=== PATIENT | female | born 1990 | race Caucasian/White ===

== ENCOUNTER 2018-05-19 02:04 | Inpatient (IN) | payer OTHER ==
[~2018-05-19] VITALS: Ht 160 cm; Wt 58.0 kg
[~2018-05-19 02:04] MED LIST: HYDR-3240 PO; IBUP-1222 PO; LEVO500T47 PO; MAGN400T26 PO; NONE PER PT; ONDA4TAB10 PO; OXYC-302 PO; PANT40TA3 PO; PNV1TABL85 PO; POLY17PO5 PO; PREN1TAB60 PO
[2018-05-19 02:44] LABS: AMPHETAMINE SCREEN, URINE Negative (Negative); BARBITURATE SCREEN, URINE Negative (Negative); BENZODIAZEPINE SCREEN, URINE Negative (Negative); CANNABINOID SCREEN, URINE Negative (Negative); COCAINE SCREEN, URINE Negative (Negative); METHADONE SCREEN, URINE Negative (Negative); OPIATE SCREEN, URINE Positive (Negative)
[2018-05-19 02:50] LABS: BASOPHILS # (AUTO) 0.11 x10^3/uL (0-0.1); BASOPHILS % (AUTO) 1 % (0-1); EOSINOPHILS # (AUTO) 0.05 x10^3/uL (0-0.4); EOSINOPHILS % (AUTO) 0 % (1-7); LYMPHOCYTES # (AUTO) 3.24 x10^3/uL (1-3.4); LYMPHOCYTES % (AUTO) 21 % (22-44); MD NO; MEAN CORPUSCULAR HEMOGLOBIN 31.8 pg (27.0-34.8); MEAN CORPUSCULAR HGB CONC 33.9 g/dL (32.4-35.8); MEAN CORPUSCULAR VOLUME 93.9 fL (80-100); MEAN PLATELET VOLUME 8.5 fL (7.4-10.4); MONOCYTES # (AUTO) 0.62 x10^3/uL (0.2-0.8); MONOCYTES % (AUTO) 4 % (2-9); NEUTROPHILS # (AUTO) 11.78 x10^3/uL (1.8-6.8); NEUTROPHILS % (AUTO) 75 % (42-75); PLATELET COUNT 289 x10^3/uL (130-400); RED BLOOD COUNT 4.01 x10^6/uL (3.82-5.3); RED CELL DISTRIBUTION WIDTH 12.9 % (9.6-15.2)
[2018-05-19] MEDS ORDERED: METOCLOPRAMIDE 5 MG/ML, 2ML ONE (03:01)
[2018-05-19] MEDS ORDERED: NEWBORN KIT ONE (03:01)
[2018-05-19] MEDS ORDERED: SODIUM CITRATE/CITRIC ACID 30 ML UDC ONE (03:01)
[2018-05-19] MEDS ORDERED: OXYTOCIN 30U/ 0.9% NaCL 500ML 500 ML IV SCH (03:14)
[2018-05-19] MEDS ORDERED: LACTATED RINGERS 1,000 ML IV SCH ×2 (03:14→03:30)
[2018-05-19] MEDS ORDERED: LACTATED RINGERS 1,000 ML IVBOLUS ONE (03:30)
[2018-05-19] MEDS ORDERED: SODIUM CITRATE/CITRIC ACID 30 ML UDC PO ONE (03:30)
[2018-05-19] MEDS ORDERED: METOCLOPRAMIDE 5 MG/ML, 2ML IV ONE (03:30)
[2018-05-19] MEDS ORDERED: OXYTOCIN 30U/ 0.9% NaCL 500ML 500 ML ONE (03:55)
[2018-05-19] MEDS ORDERED: CLINDAMYCIN PMX 900MG/50ML 50 ML ONE (04:23)
[2018-05-19] MEDS ORDERED: morphine SULFATE/PF 1 MG/ML, 10ML ONE (04:23)
[2018-05-19] MEDS ORDERED: ONDANSETRON 2MG/ML, 2ML ONE (04:34)
[2018-05-19] MEDS ORDERED: OXYTOCIN 10 UNITS/ML, 1ML ONE (04:34)
[2018-05-19] MEDS ORDERED: DEXAMETHASONE 4 MG/ML, 1ML ONE (04:34)
[2018-05-19] MEDS ORDERED: KETOROLAC 30 MG/1 ML ONE (04:34)
[2018-05-19] MEDS ORDERED: PHENYLEPHRINE 10 MG/ML ONE (04:34)
[2018-05-19] MEDS ORDERED: SODIUM CHLORIDE 0.9% PF 10ML ONE (04:43)
[2018-05-19] MEDS ORDERED: EPHEDRINE 50 MG/ML, 1ML ONE (04:43)
[2018-05-19] MEDS: OXYTOCIN 30U/ 0.9% NaCL 500ML 500 ML IV SCH ×2 (05:54→15:54)
[2018-05-19] MEDS ORDERED: IBUPROFEN 600 MG TABLET PO PRN (06:00)
[2018-05-19] MEDS ORDERED: ONDANSETRON 2MG/ML, 2ML IV PRN (06:00)
[2018-05-19] MEDS ORDERED: CARBOPROST TROMETHAMINE 250 MCG/ML, 1ML IM PRN (06:00)
[2018-05-19] MEDS ORDERED: HYDROcodone/APAP 5/325 TABLET PO PRN (06:00)
[2018-05-19] MEDS ORDERED: METHYLERGONOVINE 0.2 MG/ML IM PRN (06:00)
[2018-05-19] MEDS ORDERED: METOCLOPRAMIDE 5 MG/ML, 2ML IV PRN (06:00)
[2018-05-19] MEDS ORDERED: BISACODYL 10 MG SUPP PR PRN (06:00)
[2018-05-19 07:00] VITALS: BP 96/53
[2018-05-19] MEDS: HYDROcodone/APAP 5/325 TABLET PO PRN ×3 (08:18→20:08)
[2018-05-19] MEDS: PRENATAL VIT/IRON/FA 1 EACH TABLET PO SCH (09:00)
[2018-05-19] MEDS ORDERED: ONDANSETRON 2MG/ML, 2ML IVPush PRN (11:00)
[2018-05-19] MEDS ORDERED: NALOXONE 0.4 MG/ML, 1ML IV PRN (11:00)
[2018-05-19] MEDS ORDERED: EPHEDRINE 50 MG/ML, 1ML IVPush PRN (11:00)
[2018-05-19] MEDS ORDERED: DIPHENHYDRAMINE 50 MG/ML, 1ML IV PRN (11:00)
[2018-05-19] MEDS ORDERED: NO SEDATIVES, TRANQUILIZERS OR ANTIEMETICS XX SCH (11:00)
[2018-05-19] MEDS ORDERED: MORPHINE SULFATE 4 MG/ML, 1ML IV PRN (11:00)
[2018-05-19 11:15] VITALS: BP 98/53
[2018-05-19] MEDS: KETOROLAC 30 MG/1 ML IVPush SCH ×2 (11:28→20:15)
[2018-05-19 12:48] LABS: BASOPHILS # (AUTO) 0.08 x10^3/uL (0-0.1); BASOPHILS % (AUTO) 1 % (0-1); EOSINOPHILS % (AUTO) 0 % (1-7); LYMPHOCYTES # (AUTO) 1.35 x10^3/uL (1-3.4); LYMPHOCYTES % (AUTO) 9 % (22-44); MD NO; MEAN CORPUSCULAR HEMOGLOBIN 32.2 pg (27.0-34.8); MEAN CORPUSCULAR HGB CONC 33.9 g/dL (32.4-35.8); MEAN CORPUSCULAR VOLUME 94.8 fL (80-100); MEAN PLATELET VOLUME 8.2 fL (7.4-10.4); MONOCYTES # (AUTO) 0.49 x10^3/uL (0.2-0.8); MONOCYTES % (AUTO) 3 % (2-9); NEUTROPHILS # (AUTO) 12.41 x10^3/uL (1.8-6.8); NEUTROPHILS % (AUTO) 87 % (42-75); PLATELET COUNT 241 x10^3/uL (130-400); RED BLOOD COUNT 3.51 x10^6/uL (3.82-5.3); RED CELL DISTRIBUTION WIDTH 13.7 % (9.6-15.2)
[2018-05-19 16:00] VITALS: BP 93/61
[2018-05-19 20:00] VITALS: BP 96/63
[2018-05-19] MEDS: DOCUSATE 100 MG CAPSULE PO PRN (20:08)
[2018-05-20 00:05] VITALS: BP 91/52
[2018-05-20] MEDS: OXYTOCIN 30U/ 0.9% NaCL 500ML 500 ML IV SCH ×3 (01:54→21:54)
[2018-05-20] MEDS: KETOROLAC 30 MG/1 ML IVPush SCH (02:05)
[2018-05-20] MEDS: HYDROcodone/APAP 5/325 TABLET PO PRN ×3 (02:05→21:31)
[2018-05-20 04:00] VITALS: BP 94/57
[2018-05-20 09:06] VITALS: BP 85/48
[2018-05-20] MEDS: PRENATAL VIT/IRON/FA 1 EACH TABLET PO SCH (11:43)
[2018-05-20] MEDS: IBUPROFEN 600 MG TABLET PO PRN ×2 (11:43→21:29)
[2018-05-20] MEDS: DOCUSATE 100 MG CAPSULE PO PRN ×2 (11:43→21:29)
[2018-05-20 19:15] VITALS: BP 93/63
[2018-05-21] MEDS: HYDROcodone/APAP 5/325 TABLET PO PRN ×3 (01:46→12:41)
[2018-05-21] MEDS: IBUPROFEN 600 MG TABLET PO PRN ×2 (05:48→12:41)
[2018-05-21] MEDS: OXYTOCIN 30U/ 0.9% NaCL 500ML 500 ML IV SCH (07:54)
[2018-05-21 08:00] VITALS: BP 111/73
[2018-05-21] MEDS: PRENATAL VIT/IRON/FA 1 EACH TABLET PO SCH (08:07)
[2018-05-21] MEDS: DOCUSATE 100 MG CAPSULE PO PRN (08:07)
[2018-05-21] MEDS ORDERED: HYDR-3240 PO (11:21)
[2018-05-21] MEDS ORDERED: IBUP-1222 PO (11:22)
== END 2018-05-21 13:20 | disposition home or self-care (01) | DRG 788 ==
LOC: LDOP 02:04 → LDIP 03:11 → 2NW 06:52
PROVIDERS: ADMIT Obstetrics & Gynecology; ATTEND Obstetrics & Gynecology
PROC: 10D00Z1 Extraction of Products of Conception, Low, Open Approach (ICD-10-PCS; principal; 2018-05-19)
DX: O34.211 Maternal care for low transverse scar from previous cesarean delivery (principal); O69.81X0 Labor and delivery complicated by cord around neck, without compression, not applicable or unspecified; Z88.0 Allergy status to penicillin; Z88.8 Allergy status to other drugs, medicaments and biological substances; Z37.0 Single live birth; Z3A.38 38 weeks gestation of pregnancy
CPT/HCPCS: 36415; 76815; 80307; 84112; 85025; 86592; 86762; 86803; 86850; 86900; 87340; 87806; 89060; G0378; J1100; J1885; J2274; J2405; G0475; J2370; J2590; J2765; J7120; Q0114

== ENCOUNTER 2018-06-04 19:08 | Emergency (ER) | payer SELFPAY ==
[~2018-06-04] VITALS: Ht 160 cm; Wt 56.3 kg
[2018-06-04] MEDS ORDERED: ONDANSETRON 2MG/ML, 2ML IVPush ONE (19:30)
[2018-06-04] MEDS ORDERED: MORPHINE SULFATE 4 MG/ML, 1ML IVPush PRN (19:30)
[2018-06-04] MEDS ORDERED: SODIUM CHLORIDE 0.9% 1,000ML IVBOLUS ONE (19:30)
[2018-06-04] MEDS ORDERED: SODIUM CHLORIDE FLUSH 10ML SYR IVF ONE (19:30)
[2018-06-04 19:37] LABS: BASOPHILS # (AUTO) 0.07 x10^3/uL (0-0.1); BASOPHILS % (AUTO) 0 % (0-1); EOSINOPHILS % (AUTO) 1 % (1-7); LYMPHOCYTES # (AUTO) 1.73 x10^3/uL (1-3.4); LYMPHOCYTES % (AUTO) 10 % (22-44); MD NO; MEAN CORPUSCULAR HEMOGLOBIN 31.9 pg (27.0-34.8); MEAN CORPUSCULAR HGB CONC 33.4 g/dL (32.4-35.8); MEAN CORPUSCULAR VOLUME 95.5 fL (80-100); MEAN PLATELET VOLUME 8.5 fL (7.4-10.4); MONOCYTES # (AUTO) 1.15 x10^3/uL (0.2-0.8); MONOCYTES % (AUTO) 6 % (2-9); NEUTROPHILS # (AUTO) 14.98 x10^3/uL (1.8-6.8); NEUTROPHILS % (AUTO) 83 % (42-75); PLATELET COUNT 346 x10^3/uL (130-400); RED BLOOD COUNT 4.58 x10^6/uL (3.82-5.3); RED CELL DISTRIBUTION WIDTH 13.2 % (9.6-15.2)
[2018-06-04 19:43] LABS: ALANINE AMINOTRANSFERASE 15 U/L (12-78); ALBUMIN 3.2 g/dL (3.4-5.0); ANION GAP 10 mmol/L (5-15); CALCIUM 8.8 mg/dL (8.5-10.1); CHLORIDE 106 mmol/L (98-107)
[2018-06-04 19:45] LABS: ALKALINE PHOSPHATASE 112 U/L (45-117); BILIRUBIN,TOTAL 0.7 mg/dL (0.2-1.0)
[2018-06-04 20:14] LABS: CULTURE INDICATED? YES; MICROSCOPIC INDICATED
[2018-06-04] MEDS ORDERED: ONDANSETRON 2MG/ML, 2ML ONE (20:45)
[2018-06-04] MEDS ORDERED: CEFTRIAXONE PMX 1GM/50ML 50 ML ONE (20:45)
[2018-06-04] MEDS ORDERED: MORPHINE SULFATE 4 MG/ML, 1ML ONE (20:46)
[2018-06-04 20:51] VITALS: BP 94/68
[2018-06-04] MEDS ORDERED: CEFTRIAXONE PMX 1GM/50ML 50 ML IV ONE (21:00)
== END 2018-06-04 21:38 | disposition home or self-care (01) ==
LOC: ED 20:19
DX: N10 Acute pyelonephritis (principal); N39.0 Urinary tract infection, site not specified; Z88.0 Allergy status to penicillin; Z88.1 Allergy status to other antibiotic agents
CPT/HCPCS: 36415; 76770; 76856; 80053; 81001; 83605; 84145; 85025; 87040; 87077; 87086; 87186; 96365; 96375; 99285; J0696; J2405; J7030

== ENCOUNTER 2020-01-07 15:55 | Emergency (ER) | payer OTHER ==
[~2020-01-07] VITALS: Ht 157.5 cm; Wt 62.5 kg
[2020-01-07 16:03] VITALS: BP 110/57
[2020-01-07] MEDS ORDERED: SODIUM CHLORIDE 0.9% 1,000ML IVBOLUS ONE (16:30)
[2020-01-07] MEDS ORDERED: SODIUM CHLORIDE FLUSH 10ML SYR IVF ONE (16:30)
[2020-01-07] MEDS ORDERED: KETOROLAC 30 MG/1 ML IVPush ONE (16:30)
[2020-01-07] MEDS ORDERED: ONDANSETRON 2MG/ML, 2ML IVPush ONE ×2 (16:30→19:30)
[2020-01-07 16:40] LABS: BASOPHILS # (AUTO) 0.02 x10^3/uL (0-0.1); BASOPHILS % (AUTO) 0 % (0-1); EOSINOPHILS # (AUTO) 0.11 x10^3/uL (0-0.4); EOSINOPHILS % (AUTO) 1 % (1-7); LYMPHOCYTES # (AUTO) 1.75 x10^3/uL (1-3.4); LYMPHOCYTES % (AUTO) 11 % (22-44); MD NO; MEAN CORPUSCULAR HEMOGLOBIN 32.8 pg (27.0-34.8); MEAN CORPUSCULAR HGB CONC 33.8 g/dL (32.4-35.8); MEAN CORPUSCULAR VOLUME 96.9 fL (80-100); MEAN PLATELET VOLUME 7.5 fL (7.4-10.4); MONOCYTES # (AUTO) 1.05 x10^3/uL (0.2-0.8); MONOCYTES % (AUTO) 7 % (2-9); NEUTROPHILS # (AUTO) 12.96 x10^3/uL (1.8-6.8); NEUTROPHILS % (AUTO) 82 % (42-75); PLATELET COUNT 442 x10^3/uL (130-400); RED BLOOD COUNT 4.08 x10^6/uL (3.82-5.3); RED CELL DISTRIBUTION WIDTH 12.9 % (9.6-15.2)
[2020-01-07 16:51] LABS: ALBUMIN 3.4 g/dL (3.4-5.0); ANION GAP 6 mmol/L (5-15); CALCIUM 8.7 mg/dL (8.5-10.1); CHLORIDE 109 mmol/L (98-107)
[2020-01-07 16:56] LABS: ALANINE AMINOTRANSFERASE 18 U/L (12-78); ALKALINE PHOSPHATASE 81 U/L (45-117); BILIRUBIN,TOTAL 0.3 mg/dL (0.2-1.0); CREATININE 1.01 mg/dL (0.55-1.02); TOTAL PROTEIN 7.5 g/dL (6.4-8.2)
[2020-01-07] MEDS ORDERED: KETOROLAC 30 MG/1 ML ONE (17:13)
[2020-01-07] MEDS ORDERED: ONDANSETRON 2MG/ML, 2ML ONE ×3 (17:14→19:34)
--- NOTE | 2020-01-07 17:25 | NUR ---
PT AWARE OF NEED FOR URINE SAMPLE. DENIES ABILITY TO URINATE AT THIS TIME, FLUID BOLUS HANGING. SAMPLE EXPLAINED, CUP LEFT AT BEDSIDE, PT VERBALIZES UNDERSTANDING AND DENIES ANY FURTHER NEEDS OR CONCERNS AT THIS TIME. CALL LIGHT IN REACH.
[2020-01-07 18:05] LABS: MICROSCOPIC INDICATED
--- NOTE | 2020-01-07 18:32 | NUR ---
PT RETURNED FROM CT AT THIS TIME.
[2020-01-07] MEDS ORDERED: CEFTRIAXONE PMX 1GM/50ML 50 ML ONE ×2 (19:28→19:34)
[2020-01-07] MEDS ORDERED: MORPHINE SULFATE 4 MG/ML, 1ML ONE ×2 (19:29→19:34)
[2020-01-07] MEDS ORDERED: CEFTRIAXONE PMX 1GM/50ML 50 ML IV ONE (19:30)
[2020-01-07] MEDS ORDERED: MORPHINE SULFATE 4 MG/ML, 1ML IVPush PRN (19:30)
--- NOTE | 2020-01-07 19:37 | NUR ---
Pt medicated per emar and agreeabl to morphine dose for pain control.
== END 2020-01-07 20:39 | disposition home or self-care (01) ==
LOC: ED 16:36
DX: N30.01 Acute cystitis with hematuria (principal); N12 Tubulo-interstitial nephritis, not specified as acute or chronic; F17.200 Nicotine dependence, unspecified, uncomplicated
CPT/HCPCS: 36415; 74176; 80053; 81001; 83605; 84703; 85025; 87040; 87077; 87086; 87186; 96361; 96365; 96375; 96376; 99284; J0696; J1885; J2270; J2405; J7030

== ENCOUNTER 2021-03-14 13:32 | Emergency (ER) | payer SELFPAY ==
[~2021-03-14] VITALS: Ht 160 cm; Wt 57.2 kg
[~2021-03-14 13:32] MED LIST changes: +HYDR-2214 PO; -HYDR-3240 PO; -OXYC-302 PO; +OXYC1TAB14 PO
[2021-03-14] MEDS ORDERED: SODIUM CHLORIDE 0.9% 1,000 ML IV ONE (14:30)
[2021-03-14] MEDS ORDERED: SODIUM CHLORIDE 0.9% 1,000ML IVBOLUS ONE ×2 (14:30→17:30)
[2021-03-14] MEDS ORDERED: SODIUM CHLORIDE FLUSH 10ML SYR IVF ONE (14:30)
[2021-03-14] MEDS ORDERED: ONDANSETRON 2MG/ML, 2ML IVPush ONE (14:30)
[2021-03-14] MEDS ORDERED: ONDANSETRON 2MG/ML, 2ML ONE (14:40)
--- NOTE | 2021-03-14 14:56 | NUR ---
PT LAYING ON GURNEY AWAKE & CALM, MEDICATED PER EMAR, RESPONDS APPROP TO STAFF, COMFORT MEASURES PROVIDED, AT BS, CALL LIGHT WITHIN REACH.
[2021-03-14 15:02] LABS: BASOPHILS % (AUTO) 0 % (0-1); EOSINOPHILS % (AUTO) 1 % (1-7); LYMPHOCYTES % (AUTO) 5 % (22-44); MEAN CORPUSCULAR HEMOGLOBIN 33.2 pg (27.0-34.8); MEAN CORPUSCULAR HGB CONC 34.7 g/dL (32.4-35.8); MEAN PLATELET VOLUME 8.6 fL (7.4-10.4); MONOCYTES % (AUTO) 0 % (2-9); NEUTROPHILS % (AUTO) 94 % (42-75); PLATELET COUNT 190 x10^3/uL (130-400); RED BLOOD COUNT 3.63 x10^6/uL (3.82-5.3); RED CELL DISTRIBUTION WIDTH 12.2 % (9.6-15.2)
[2021-03-14 15:03] LABS: ALANINE AMINOTRANSFERASE 17 U/L (12-78); ALBUMIN 3.3 g/dL (3.4-5.0); ANION GAP 6 mmol/L (5-15); CALCIUM 7.9 mg/dL (8.5-10.1); CHLORIDE 108 mmol/L (98-107); CREATININE 0.92 mg/dL (0.55-1.02)
[2021-03-14 15:20] LABS: ALKALINE PHOSPHATASE 64 U/L (45-117); BILIRUBIN,TOTAL 1.6 mg/dL (0.2-1.0); TOTAL PROTEIN 6.5 g/dL (6.4-8.2)
[2021-03-14] MEDS ORDERED: POTASSIUM CHLORIDE 20 MEQ TAB.ER.PRT PO ONE (15:30)
[2021-03-14 15:33] LABS: MICROSCOPIC INDICATED
--- NOTE | 2021-03-14 16:08 | NUR ---
ING ON HELEN WITH EYES CLOSED, MEDICATED PER SERVANDO, RESPONDS APPROP TO STAFF, COMMFORT MEASURES PROVIDED, AT BS, CALL LIGHT WITHIN REACH. Addendum: 03/14/21 at 1610 by WILLIE PT RESTING ON HELEN WITH EYES CLOSED, RESPONDS APPROP TO STAFF, NO NEEDS AT THIS TIME, AT BS, CALL LIGHT WITHIN REACH. PT TO US
[2021-03-14] MEDS ORDERED: POTASSIUM CHLORIDE 20 MEQ TAB.ER.PRT ONE (17:02)
--- NOTE | 2021-03-14 17:04 | NUR ---
PT LAYING ON GURNEY WITH EYES CLOSED, RESPONDS APPROP TO STAFF, ERP AWARE OF CURRENT VS- PT MEDICATED PER EMAR, COMFORT MEASURES PROVIDED, AT BS, CALL LIGHT WITHIN REACH.
[2021-03-14] MEDS ORDERED: CEFTRIAXONE 1,000 MG in DEXTROSE 5% 50 ML IVPB ONE (17:30)
--- NOTE | 2021-03-14 18:04 | NUR ---
PT LAYING ON GURNEY AWAKE & CALM, RESPONDS APPROP TO STAFF, NO NEEDS AT THIS TIME, AT BS, CALL LIGHT WITHIN REACH.
[2021-03-14] MEDS ORDERED: D5%-0.9% NACL 1,000 ML IV ONE (18:30)
--- NOTE | 2021-03-14 19:04 | NUR ---
PT UPRIGHT ON GURNEY AWAKE & CALM, RESPONDS APPROP TO STAFF, ERP AT BS UPDATING PT ON POC, NO NEEDS AT THIS TIME, AT BS, CALL LIGHT WITHIN REACH.
[2021-03-14 19:25] VITALS: BP 88/56
--- NOTE | 2021-03-14 19:25 | NUR ---
PT AMBULATED TO WO DIZZINESS/LIGHT-HEADEDNESS OR WEAKNESS- ERP NOTIFIED, IVF INFUSED, PT BACK TO [facility].
--- NOTE | 2021-03-14 20:06 | NUR ---
Patient given discharge instructions and Rx, they have confirmed that they understand the instructions. Patient ambulatory with steady gait. NAD, all questions answered appropriately, denies additional needs at this time. No personal belongings left in room after discharge.
== END 2021-03-14 20:09 | disposition home or self-care (01) ==
LOC: ED 15:01
DX: O26.891 Other specified pregnancy related conditions, first trimester (principal); N10 Acute pyelonephritis; R10.32 Left lower quadrant pain; Z32.01 Encounter for pregnancy test, result positive; O99.331 Smoking (tobacco) complicating pregnancy, first trimester; F17.200 Nicotine dependence, unspecified, uncomplicated; Z3A.01 Less than 8 weeks gestation of pregnancy
CPT/HCPCS: 36415; 76801; 80053; 81001; 83605; 84702; 85025; 87040; 87077; 87086; 87186; 96361; 96365; 96367; 96375; 99285; J0696; J2405; J7030; J7042